=== PATIENT | male | born 1975 | race Two or more races ===

== ENCOUNTER 2018-04-30 17:39 | Emergency (ER) | payer OTHER ==
[~2018-04-30] VITALS: Ht 175.3 cm; Wt 99.8 kg
== END 2018-05-01 10:17 | disposition home or self-care (01) ==
LOC: ER 17:39
DX: A08.39 Other viral enteritis (principal)

== ENCOUNTER 2021-12-05 22:08 | Emergency (ER) | payer OTHER ==
[~2021-12-05] VITALS: Ht 175.3 cm; Wt 104.3 kg
[2021-12-05] MEDS ORDERED: TYLENOL (22:31)
[2021-12-06] MEDS ORDERED: ACETAMINOPHEN650 M2 PO (01:56)
[2021-12-06] MEDS ORDERED: LOSARTAN POTAS100 MG PO (01:56)
[2021-12-06] MEDS ORDERED: NORFLEX100MG PO (01:56)
== END 2021-12-06 02:15 | disposition home or self-care (01) ==
LOC: ER 22:08
DX: R07.89 Other chest pain (principal); I10 Essential (primary) hypertension; Z91.018 Allergy to other foods

== ENCOUNTER 2021-12-24 21:53 | Emergency (ER) | payer OTHER ==
[~2021-12-24] VITALS: Ht 175.3 cm; Wt 104.3 kg
[~2021-12-24 21:53] MED LIST: ACETAMINOPHEN650 M2 PO; LOSARTAN POTAS100 MG PO; NORFLEX100MG PO; TYLENOL
== END 2021-12-25 05:14 | disposition home or self-care (01) ==
LOC: ER 21:53
DX: R07.89 Other chest pain (principal); I10 Essential (primary) hypertension

== ENCOUNTER 2022-03-14 16:13 | Emergency (ER) | payer OTHER ==
[~2022-03-14] VITALS: Ht 167.6 cm; Wt 90.7 kg
== END 2022-03-14 19:54 | disposition home or self-care (01) ==
LOC: ER 16:13
DX: R07.89 Other chest pain (principal); Z91.018 Allergy to other foods

== ENCOUNTER 2022-11-17 14:56 | Emergency (ER) | payer OTHER ==
[~2022-11-17] VITALS: Ht 175.3 cm; Wt 112.0 kg
== END 2022-11-17 18:58 | disposition home or self-care (01) ==
LOC: ER 14:56
PROVIDERS: Nurse Practitioner Family
DX: K29.70 Gastritis, unspecified, without bleeding (principal); Z91.018 Allergy to other foods; I10 Essential (primary) hypertension

== ENCOUNTER 2023-04-14 20:28 | Emergency (ER) | payer OTHER ==
[~2023-04-14] VITALS: Ht 175.3 cm; Wt 103.4 kg
[2023-04-14 21:34] LABS: HEMOGLOBIN 14.3 g/dL (13-16.00); MEAN CORPUSCULAR HEMOGLOBIN 30.7 pg (27.00-32.0); MEAN CORPUSCULAR HGB CONC 34.9 g/dl (32.0-36.0); PLATELET COUNT 327 K/uL (150-450); RED BLOOD COUNT 4.65 M/uL (4.00-6.00); RED CELL DISTRIBUTION WIDTH 12.5 % (11.5-14.5)
[2023-04-14 22:08] LABS: ALBUMIN 4.2 gm/dL (3.4-5.0); BILIRUBIN TOTAL 0.48 mg/dL (0.3-1.2); CALCIUM 9.2 mg/dL (8.5-10.1); CREATININE SERUM 1.24 mg/dL (0.70-1.30); GFR 62.49; GLOBULINA 3.3 G/DL (2.4-3.5); POTASSIUM 3.7 mEq/L (3.5-5.1); TOTAL PROTEIN 7.5 gm/dL (6.4-8.2)
== END 2023-04-15 01:43 | disposition home or self-care (01) ==
LOC: ER 20:29
PROVIDERS: General Practice
DX: K30 Functional dyspepsia (principal); R10.9 Unspecified abdominal pain; I10 Essential (primary) hypertension; Z91.018 Allergy to other foods

== ENCOUNTER 2023-04-19 05:19 | Inpatient (IN) | payer OTHER ==
[~2023-04-19] VITALS: Ht 177.8 cm; Wt 102.1 kg
[2023-04-19] MEDS ORDERED: PROMETHAZINE HCL 50 MG/ML AMPUL IM STA (06:04)
[2023-04-19] MEDS ORDERED: MEPERIDINE HCL/PF 50 MG/ML VIAL IM STA (06:04)
[2023-04-19] MEDS ORDERED: 0.9 % SODIUM CHLORIDE 1,000 ML IV ONE (06:15)
[2023-04-19 06:46] LABS: HEMATOCRIT 41.5 % (39.0-48.0); HEMOGLOBIN 14.3 g/dL (13-16.00); MEAN CELL VOLUME 89.5 fL (80.0-100.00); MEAN CORPUSCULAR HEMOGLOBIN 30.8 pg (27.00-32.0); MEAN CORPUSCULAR HGB CONC 34.5 g/dl (32.0-36.0); PLATELET COUNT 270 K/uL (150-450); RED BLOOD COUNT 4.64 M/uL (4.00-6.00)
[2023-04-19 06:53] LABS: INR 1.12; PARTIAL THROMBOPLASTIN TIME 26.5 SECONDS (22.0-34.0); PROTHROMBIN TIME 11.7 SECONDS (9.0-11.5)
[2023-04-19 07:01] LABS: ALBUMIN 3.8 gm/dL (3.4-5.0); BILIRUBIN TOTAL 8.01 mg/dL (0.3-1.2); BILIRUBIN,CONJUGATED 5.91 mg/dL (0.0-0.2); BILIRUBIN,UNCONJUGATED 2.1 mg/dL (0.0-0.6); CALCIUM 8.5 mg/dL (8.5-10.1); CREATININE SERUM 1.35 mg/dL (0.70-1.30); GFR 56.65; GLOBULINA 3.4 G/DL (2.4-3.5); POTASSIUM 3.78 mEq/L (3.5-5.1); TOTAL PROTEIN 7.2 gm/dL (6.4-8.2)
[2023-04-19 07:23] LABS: URINE APPEARANCE Clear; URINE BACTERIA 11.3 uL (0.0-1933); URINE BILIRRUBIN Moderate (NEGATIVE); URINE BLOOD Negative; URINE COLOR Dark Yellow; URINE EPITHELIAL CELLS 6.9 uL (0.0-38.8); URINE LEUKOCYTE Trace; URINE NITRATE Negative; URINE PROTEIN Trace (NEGATIVE); URINE RBC 4.5 uL (0.0-20.8); URINE WBC 2.7 uL (0.0-23.2)
[2023-04-19] MEDS ORDERED: PIPERACILLIN/TAZOBACTAM SODIUM 3.375 GM in DEXTROSE 5 % IN WATER 100 ML IV SCH (07:25)
[2023-04-19 07:35] LABS: URINE GLUCOSE >=1000 MG/DL (NEGATIVE)
[2023-04-19] MEDS ORDERED: MEPERIDINE HCL/PF 25 MG/ML VIAL IV ONE (09:30)
[2023-04-19] MEDS ORDERED: ENALAPRILAT DIHYDRATE 1.25 MG/ML VIAL IV PRN (12:30)
[2023-04-19] MEDS ORDERED: 0.9 % SODIUM CHLORIDE 1,000 ML IV SCH (12:45)
[2023-04-19] MEDS ORDERED: 0.9 % SODIUM CHLORIDE 500 ML IV SCH (12:45)
[2023-04-19] MEDS ORDERED: ONDANSETRON HCL 4 MG in 0.9 % SODIUM CHLORIDE 50 ML IV PRN (12:45)
[2023-04-19] MEDS ORDERED: MEPERIDINE HCL/PF 25 MG/ML VIAL IV PRN (12:45)
[2023-04-19 14:08] LABS: ALBUMIN 3.7 gm/dL (3.4-5.0); BILIRUBIN TOTAL 5.42 mg/dL (0.3-1.2); CALCIUM 7.9 mg/dL (8.5-10.1); CREATININE SERUM 1.34 mg/dL (0.70-1.30); GFR 57.14; GLOBULINA 3.4 G/DL (2.4-3.5); POTASSIUM 3.62 mEq/L (3.5-5.1); TOTAL PROTEIN 7.1 gm/dL (6.4-8.2)
[2023-04-19] MEDS ORDERED: MEPERIDINE HCL/PF 50 MG/ML VIAL IM PRN (15:45)
[2023-04-19] MEDS ORDERED: FAMOTIDINE/PF 20 MG in 0.9 % SODIUM CHLORIDE 100 ML IV SCH (21:00)
[2023-04-20 06:53] LABS: HEMATOCRIT 45.1 % (39.0-48.0); HEMOGLOBIN 15.3 g/dL (13-16.00); MEAN CELL VOLUME 89.5 fL (80.0-100.00); MEAN CORPUSCULAR HEMOGLOBIN 30.4 pg (27.00-32.0); PLATELET COUNT 232 K/uL (150-450); RED BLOOD COUNT 5.04 M/uL (4.00-6.00); RED CELL DISTRIBUTION WIDTH 13.2 % (11.5-14.5)
[2023-04-20 06:59] LABS: ALBUMIN 3.4 gm/dL (3.4-5.0); BILIRUBIN TOTAL 2.5 mg/dL (0.3-1.2); CALCIUM 7.6 mg/dL (8.5-10.1); CREATININE SERUM 1.09 mg/dL (0.70-1.30); GFR 72.51; GLOBULINA 3.2 G/DL (2.4-3.5); POTASSIUM 3.68 mEq/L (3.5-5.1); TOTAL PROTEIN 6.6 gm/dL (6.4-8.2)
[2023-04-20 07:02] LABS: C-REACTIVE PROTEIN 2.51 MG/DL (0.00-0.29)
[2023-04-20] MEDS ORDERED: MORPHINE SULFATE 4 MG/ML CARTRIDGE IV PRN (12:45)
[2023-04-20 14:54] LABS: CHOL HDL RATIO 3.9 (0-5.0); CREATININE SERUM 1.1 mg/dL (0.70-1.30); GFR 71.75; POTASSIUM 3.59 mEq/L (3.5-5.1)
[2023-04-20 15:18] LABS: CALCIUM 6.5 mg/dL (8.5-10.1)
[2023-04-20] MEDS ORDERED: AA 4.25%/CAL/LYTES/DEXT 5% 1,000 ML PERIFERAL SCH (17:00)
[2023-04-21 07:28] LABS: HEMATOCRIT 41.6 % (39.0-48.0); MEAN CORPUSCULAR HEMOGLOBIN 30.3 pg (27.00-32.0); MEAN CORPUSCULAR HGB CONC 33.7 g/dl (32.0-36.0); PLATELET COUNT 194 K/uL (150-450); RED BLOOD COUNT 4.62 M/uL (4.00-6.00); RED CELL DISTRIBUTION WIDTH 13.5 % (11.5-14.5)
[2023-04-21 07:36] LABS: BILIRUBIN TOTAL 1.44 mg/dL (0.3-1.2); CREATININE SERUM 1.27 mg/dL (0.70-1.30); GFR 60.79; GLOBULINA 2.9 G/DL (2.4-3.5); POTASSIUM 3.5 mEq/L (3.5-5.1); TOTAL PROTEIN 5.9 gm/dL (6.4-8.2)
[2023-04-21 08:48] LABS: C-REACTIVE PROTEIN 11.9 MG/DL (0.00-0.29)
[2023-04-21 08:49] LABS: CALCIUM 6.3 mg/dL (8.5-10.1)
[2023-04-21] MEDS ORDERED: MEROPENEM 1,000 MG VIAL IV SCH (20:00)
[2023-04-22] MEDS ORDERED: BARIUM SULFATE 450 ML ORAL.SUSP PO ONE (12:30)
[2023-04-22] MEDS ORDERED: CALCIUM GLUCONATE 100 MG/ML VIAL IV ONE (13:00)
[2023-04-22] MEDS ORDERED: ORPHENADRINE CITRATE 30 MG/ML AMPUL IM SCH (13:15)
[2023-04-23 07:11] LABS: INR 1.09; PARTIAL THROMBOPLASTIN TIME 29.8 SECONDS (22.0-34.0); PROTHROMBIN TIME 11.4 SECONDS (9.0-11.5)
[2023-04-23 07:16] LABS: ALBUMIN 2.6 gm/dL (3.4-5.0); BILIRUBIN TOTAL 1.25 mg/dL (0.3-1.2); BILIRUBIN,CONJUGATED 0.64 mg/dL (0.0-0.2); BILIRUBIN,UNCONJUGATED 0.61 mg/dL (0.0-0.6); CHOL HDL RATIO 4.5 (0-5.0); CREATININE SERUM 0.78 mg/dL (0.70-1.30); GFR 106.69; MAGNESIUM 2.4 mg/dL (1.8-2.4); POTASSIUM 4.04 mEq/L (3.5-5.1); TOTAL PROTEIN 5.6 gm/dL (6.4-8.2)
[2023-04-23 07:19] LABS: ALBUMIN 2.5 gm/dL (3.4-5.0); BILIRUBIN TOTAL 1.26 mg/dL (0.3-1.2); CALCIUM 6.9 mg/dL (8.5-10.1); CREATININE SERUM 0.74 mg/dL (0.70-1.30); GFR 113.37; POTASSIUM 3.89 mEq/L (3.5-5.1); TOTAL PROTEIN 5.5 gm/dL (6.4-8.2)
[2023-04-23 07:21] LABS: HEMATOCRIT 33.7 % (39.0-48.0); MEAN CELL VOLUME 89.4 fL (80.0-100.00); MEAN CORPUSCULAR HGB CONC 33.9 g/dl (32.0-36.0); PLATELET COUNT 187 K/uL (150-450); RED BLOOD COUNT 3.77 M/uL (4.00-6.00)
[2023-04-23 07:23] LABS: C-REACTIVE PROTEIN 13.2 MG/DL (0.00-0.29)
[2023-04-23 07:24] LABS: HEMOGLOBIN 11.4 g/dL (13-16.00); MEAN CORPUSCULAR HEMOGLOBIN 30.2 pg (27.00-32.0)
[2023-04-23 07:32] LABS: ERYTHROCYTE SEDIMENTATION RATE 19 mm/hr
[2023-04-23 07:43] LABS: CALCIUM 7.3 mg/dL (8.5-10.1)
[2023-04-23] MEDS ORDERED: hydrALAZINE HCL 20 MG VIAL IV SCH (08:55)
[2023-04-23] MEDS ORDERED: SODIUM CL 0.9% 100 ML IV.SOLN IV ONE (09:13)
[2023-04-23 10:24] LABS: UREA CLEARANCE 80.6 ML/MIN
[2023-04-23] MEDS ORDERED: NITROGLYCERIN IN 5 % DEXTROSE 50 MG/250 ML KIT IV ONE (12:09)
[2023-04-23] MEDS ORDERED: NITROGLYCERIN IN 5 % DEXTROSE 250 ML IV SCH (14:00)
[2023-04-23] MEDS ORDERED: DOXYCYCLINE HYCLATE 100MG IV SCH (21:00)
[2023-04-23] MEDS ORDERED: DILTIAZEM HCL 125 MG in 0.9 % SODIUM CHLORIDE 100 ML IV SCH (21:00)
[2023-04-24] MEDS ORDERED: DILTIAZEM HCL 125 MG in 0.9 % SODIUM CHLORIDE 100 ML IV SCH (08:15)
[2023-04-24] MEDS ORDERED: MEPERIDINE HCL/PF 25 MG/ML VIAL IV PRN (15:00)
[2023-04-24 16:11] LABS: hav igm Negative (Negative); hcv Non Reactive (Non Reactive); hep b c Negative (Negative)
[2023-04-25] MEDS ORDERED: ONDANSETRON HCL 2 MG/ML VIAL IV PRN (06:30)
[2023-04-25] MEDS ORDERED: ACETAMINOPHEN 500 MG GEL..CAP PO PRN (06:30)
[2023-04-25 07:06] LABS: ALBUMIN 2.3 gm/dL (3.4-5.0); BILIRUBIN TOTAL 0.84 mg/dL (0.3-1.2); CALCIUM 7.6 mg/dL (8.5-10.1); CREATININE SERUM 0.66 mg/dL (0.70-1.30); GFR 129.37; TOTAL PROTEIN 5.3 gm/dL (6.4-8.2)
[2023-04-25 07:09] LABS: POTASSIUM 2.95 mEq/L (3.5-5.1)
[2023-04-25 07:59] LABS: HEMATOCRIT 30.6 % (39.0-48.0); HEMOGLOBIN 10.6 g/dL (13-16.00); MEAN CELL VOLUME 88.2 fL (80.0-100.00); MEAN CORPUSCULAR HEMOGLOBIN 30.7 pg (27.00-32.0); MEAN CORPUSCULAR HGB CONC 34.8 g/dl (32.0-36.0); PLATELET COUNT 257 K/uL (150-450); RED BLOOD COUNT 3.47 M/uL (4.00-6.00); RED CELL DISTRIBUTION WIDTH 13.2 % (11.5-14.5)
[2023-04-25] MEDS ORDERED: FAMOTIDINE/PF 20 MG/2 ML VIAL IV SCH (09:00)
[2023-04-25] MEDS ORDERED: POTASSIUM CHLORIDE IN WATER 40 MEQ/100 ML PIGGYBAG IV SCH (09:45)
[2023-04-25 16:58] LABS: HEMATOCRIT 32.8 % (39.0-48.0); HEMOGLOBIN 11.3 g/dL (13-16.00); MEAN CELL VOLUME 87.9 fL (80.0-100.00); MEAN CORPUSCULAR HEMOGLOBIN 30.3 pg (27.00-32.0); MEAN CORPUSCULAR HGB CONC 34.4 g/dl (32.0-36.0); PLATELET COUNT 298 K/uL (150-450); RED BLOOD COUNT 3.73 M/uL (4.00-6.00); RED CELL DISTRIBUTION WIDTH 13.3 % (11.5-14.5)
[2023-04-25] MEDS ORDERED: LOSARTAN POTASSIUM 50 MG TABLET PO SCH (21:11)
[2023-04-26 07:02] LABS: ALBUMIN 2.4 gm/dL (3.4-5.0); BILIRUBIN TOTAL 0.77 mg/dL (0.3-1.2); CALCIUM 7.8 mg/dL (8.5-10.1); CREATININE SERUM 0.75 mg/dL (0.70-1.30); GFR 111.63; GLOBULINA 3.3 G/DL (2.4-3.5); MAGNESIUM 2.3 mg/dL (1.8-2.4); POTASSIUM 3.48 mEq/L (3.5-5.1); TOTAL PROTEIN 5.7 gm/dL (6.4-8.2)
[2023-04-26 07:15] LABS: PHOSPHOROUS 1.3 mg/dL (2.5-4.9)
[2023-04-26] MEDS ORDERED: NIFEDIPINE 30 MG TAB.SA.OSM PO SCH (09:00)
[2023-04-26] MEDS ORDERED: POTASSIUM PHOS,M-BASIC-D-BASIC 3 MM/ML VIAL IV ONE (12:00)
[2023-04-26] MEDS ORDERED: SIMETHICONE 125 MG CAPSULE PO SCH (17:00)
[2023-04-26] MEDS ORDERED: MEPERIDINE HCL/PF 25 MG/ML VIAL IV PRN (21:00)
[2023-04-27 07:10] LABS: HEMATOCRIT 33.4 % (39.0-48.0); HEMOGLOBIN 11.4 g/dL (13-16.00); MEAN CELL VOLUME 88.2 fL (80.0-100.00); PLATELET COUNT 400 K/uL (150-450); RED BLOOD COUNT 3.79 M/uL (4.00-6.00); RED CELL DISTRIBUTION WIDTH 13.6 % (11.5-14.5)
[2023-04-27 07:25] LABS: ALBUMIN 2.4 gm/dL (3.4-5.0); BILIRUBIN TOTAL 0.64 mg/dL (0.3-1.2); CREATININE SERUM 0.71 mg/dL (0.70-1.30); GFR 118.92; GLOBULINA 3.3 G/DL (2.4-3.5); MAGNESIUM 2.5 mg/dL (1.8-2.4); PHOSPHOROUS 2.9 mg/dL (2.5-4.9); POTASSIUM 3.94 mEq/L (3.5-5.1); TOTAL PROTEIN 5.7 gm/dL (6.4-8.2)
[2023-04-27] MEDS ORDERED: LOSARTAN POTASSIUM 50 MG TABLET PO SCH (09:00)
[2023-04-27] MEDS ORDERED: BENZONATATE 100 MG CAPSULE PO SCH (17:00)
[2023-04-27] MEDS ORDERED: FLUTICASONE PROPIONATE 50 MCG SPRAY NASAL SCH (21:00)
[2023-04-27] MEDS ORDERED: LORATADINE 10 MG TABLET PO SCH (21:00)
[2023-04-29] MEDS ORDERED: ENOXAPARIN SODIUM 40 MG/0.4 ML SYRINGE SUBCUTANEO SCH (09:00)
[2023-04-29] MEDS ORDERED: NAPROXEN 500 MG TABLET PO ONE (12:00)
[2023-04-30 06:13] LABS: HEMATOCRIT 33.7 % (39.0-48.0); HEMOGLOBIN 11.4 g/dL (13-16.00); MEAN CELL VOLUME 88.5 fL (80.0-100.00); MEAN CORPUSCULAR HGB CONC 33.9 g/dl (32.0-36.0); PLATELET COUNT 504 K/uL (150-450); RED BLOOD COUNT 3.81 M/uL (4.00-6.00); RED CELL DISTRIBUTION WIDTH 13.2 % (11.5-14.5)
[2023-04-30 07:02] LABS: ALBUMIN 2.7 gm/dL (3.4-5.0); BILIRUBIN TOTAL 0.57 mg/dL (0.3-1.2); BILIRUBIN,CONJUGATED 0.33 mg/dL (0.0-0.2); BILIRUBIN,UNCONJUGATED 0.24 mg/dL (0.0-0.6); CALCIUM 8.6 mg/dL (8.5-10.1); CHOL HDL RATIO 5.6 (0-5.0); CREATININE SERUM 0.76 mg/dL (0.70-1.30); GFR 109.94; GLOBULINA 3.6 G/DL (2.4-3.5); MAGNESIUM 2.3 mg/dL (1.8-2.4); PHOSPHOROUS 2.6 mg/dL (2.5-4.9); POTASSIUM 4.04 mEq/L (3.5-5.1); TOTAL PROTEIN 6.3 gm/dL (6.4-8.2)
[2023-04-30 09:25] LABS: UREA CLEARANCE 36.4 ML/MIN
[2023-04-30] MEDS ORDERED: IOHEXOL 350 mgI/ML 50ML BOTT PO ONE (09:45)
[2023-04-30 10:23] LABS: INR 1.18; PROTHROMBIN TIME 12.2 SECONDS (9.0-11.5)
[2023-05-01] MEDS ORDERED: NIFEDIPINE 60 MG TAB.SA.OSM PO SCH (09:00)
[2023-05-01] MEDS ORDERED: LOSARTAN POTAS100 MG PO (18:48)
== END 2023-05-01 20:29 | disposition home or self-care (01) | DRG 440 ==
LOC: ER 05:19 → MEDI 13:04 → SEC-K 13:04 → MEDI 15:08 → MEDJ 04-21 17:27 → ICU 04-22 21:54 → SURH 04-27 19:37
PROVIDERS: General Practice; Internal Medicine; Internal Medicine Infectious Disease; ADMIT Internal Medicine; ATTEND Internal Medicine
PROC: BF37ZZZ Magnetic Resonance Imaging (MRI) of Pancreas (ICD-10-PCS; principal; 2023-04-19)
PROC: 3E0436Z Introduction of Nutritional Substance into Central Vein, Percutaneous Approach (ICD-10-PCS; 2023-04-21)
PROC: 02HV33Z Insertion of Infusion Device into Superior Vena Cava, Percutaneous Approach (ICD-10-PCS; 2023-04-21)
PROC: BW21YZZ Computerized Tomography (CT Scan) of Abdomen and Pelvis using Other Contrast (ICD-10-PCS; 2023-04-23)
PROC: B246ZZZ Ultrasonography of Right and Left Heart (ICD-10-PCS; 2023-04-23)
PROC: BW21YZZ Computerized Tomography (CT Scan) of Abdomen and Pelvis using Other Contrast (ICD-10-PCS; 2023-04-30)
DX: K85.10 Biliary acute pancreatitis without necrosis or infection (principal); K80.80 Other cholelithiasis without obstruction; R74.01 Elevation of levels of liver transaminase levels; E86.0 Dehydration; E83.51 Hypocalcemia; D72.829 Elevated white blood cell count, unspecified; M62.830 Muscle spasm of back; R00.0 Tachycardia, unspecified; I10 Essential (primary) hypertension; G43.809 Other migraine, not intractable, without status migrainosus

== ENCOUNTER 2023-05-28 05:35 | Day surgery (SDC) | payer OTHER ==
[2023-05-25 14:31] LABS: INR 1.07; PARTIAL THROMBOPLASTIN TIME 33.3 SECONDS (22.0-34.0); PROTHROMBIN TIME 11.2 SECONDS (9.0-11.5)
[~2023-05-28] VITALS: Ht 175.3 cm; Wt 97.5 kg
[2023-05-28] MEDS ORDERED: CEFAZOLIN SODIUM 1,000 MG VIAL ONE (13:52)
[2023-05-28] MEDS ORDERED: CEFAZOLIN SODIUM 1,000 MG VIAL IV SCH (14:45)
[2023-05-28] MEDS ORDERED: SUGAMMADEX SODIUM 200 MG/2 ML VIAL IV ONE (15:20)
[2023-05-28] MEDS ORDERED: SUGAMMADEX SODIUM 200 MG/2 ML VIAL IV SCH (15:30)
== END 2023-05-28 17:50 | disposition home or self-care (01) ==
LOC: CIR.AMB 05:35
PROVIDERS: ATTEND Surgery
DX: K80.10 Calculus of gallbladder with chronic cholecystitis without obstruction (principal); Z91.048 Other nonmedicinal substance allergy status; Z20.822 Contact with and (suspected) exposure to COVID-19